=== PATIENT | male | born 1970 | race Caucasian/White ===

== ENCOUNTER → 2016-04-28 | Outpatient (CLI) | payer OTHER ==
[~2016-04-28] MED LIST: AMOXICILLIN 50500 MG PO; CEPHALEXIN500 M1 PO; LEVAQUIN 5500 MG/TA1 PO; PRILOSEC 20MG20 MG PO
[2016-04-28 15:23] LABS: BASO % 0.9 % (0.0-2.0); EOS # 0.1 (0.0-0.7); EOS % 2.3 % (0-4.0); GRAN # 2.4 (1.4-6.5); GRAN % 55.7 % (42.2-75.2); HEMATOCRIT 46.9 % (42.0-52.0); HEMOGLOBIN 16.3 g/dl (13.5-18.0); LYMPH # 1.4 (1.2-3.4); LYMPH % 31.6 % (20.0-51.0); MEAN CELL VOLUME 87 fl (80.0-100.0); MEAN CORPUSCULAR HEMOGLOBIN 30 pg (27.0-31.0); MEAN CORPUSCULAR HGB CONC 35 g/dl (33.0-37.0); MEAN PLATELET VOLUME 10.4 fl (7.4-10.4); MONO # 0.4 (0.1-0.6); MONO % 9.3 % (1.7-9.3); PLATELET COUNT 187 K/mm3 (130-400); RED BLOOD COUNT 5.37 M/mm3 (4.20-5.60); REDCELL DISTRIBUTION WIDTH-CV 12.7 % (11.5-14.5); WHITE BLOOD COUNT 4.3 K/mm3 (4.8-10.8)
[2016-04-28 16:02] LABS: ALBUMIN 4.9 gm/dL (3.5-5.0); BILIRUBIN,TOTAL 2.2 mg/dL (0.0-1.0); TOTAL PROTEIN 8.2 gm/dL (6.4-8.2)
[2016-04-28 16:30] LABS: BILIRUBIN,DIRECT 0.4 mg/dL (0.0-0.4)
[2016-04-29 23:48] LABS: HEPATITIS A ANTIBODY-IGM Negative (())
== END ==
LOC: COL.LAB 14:47 → COL.RAD 04-30 07:30
PROVIDERS: Registered Nurse
DX: K29.60 Other gastritis without bleeding (principal); E80.6 Other disorders of bilirubin metabolism; D72.89 Other specified disorders of white blood cells

== ENCOUNTER → 2016-04-30 | Outpatient (CLI) | payer OTHER | LOC: COL.RAD 06:28 | DX: D72.89 Other specified disorders of white blood cells (principal); E80.6 Other disorders of bilirubin metabolism; R10.84 Generalized abdominal pain ==

== ENCOUNTER 2016-09-30 10:03 | Emergency (ER) | payer OTHER ==
[~2016-09-30] VITALS: Ht 124.5 cm; Wt 57.7 kg
[~2016-09-30 10:03] MED LIST changes: -CEPHALEXIN500 M1 PO
[2016-09-30 10:58] LABS: BASO # 0.1 (0.0-0.2); BASO % 1.1 % (0.0-2.0); EOS # 0.2 (0.0-0.7); EOS % 3.3 % (0-4.0); GRAN # 2.4 (1.4-6.5); GRAN % 53.4 % (42.2-75.2); HEMATOCRIT 44.4 % (42.0-52.0); HEMOGLOBIN 15.7 g/dl (13.5-18.0); LYMPH # 1.4 (1.2-3.4); LYMPH % 30.7 % (20.0-51.0); MEAN CELL VOLUME 87 fl (80.0-100.0); MEAN CORPUSCULAR HEMOGLOBIN 31 pg (27.0-31.0); MEAN CORPUSCULAR HGB CONC 35 g/dl (33.0-37.0); MEAN PLATELET VOLUME 10.6 fl (7.4-10.4); MONO # 0.5 (0.1-0.6); MONO % 11.1 % (1.7-9.3); PLATELET COUNT 179 K/mm3 (130-400); REDCELL DISTRIBUTION WIDTH-CV 12.6 % (11.5-14.5); WHITE BLOOD COUNT 4.5 K/mm3 (4.8-10.8)
[2016-09-30 11:00] LABS: ADJUSTED CALCIUM 8.9 mg/dL (8.4-10.2); ALANINE AMINOTRANSFERASE 52 U/L (21-72); ALBUMIN 4.5 gm/dL (3.5-5.0); ALKALINE PHOSPHATASE 79 U/L (50-136); ANION GAP 10 mmol/L (7-16); BILIRUBIN,TOTAL 2.1 mg/dL (0.0-1.0); BLOOD UREA NITROGEN 14 mg/dL (9-20); CALCIUM 9.3 mg/dL (8.4-10.2); CARBON DIOXIDE 25 mmol/L (22-30); CHLORIDE 101 mmol/L (98-107); CREATININE, serum 0.94 mg/dL (0.66-1.25); GLUCOSE 108 mg/dL (74-106); POTASSIUM 4.1 mmol/L (3.4-5.0); SODIUM 137 mmol/L (137-145); TOTAL PROTEIN 7.5 gm/dL (6.4-8.2)
[2016-09-30 11:02] LABS: C-REACTIVE PROTEIN < 0.5 mg/dL (0.0-0.9)
[2016-09-30 11:13] LABS: TROPONIN-I < 0.012 ng/mL (0.000-0.034)
[2016-09-30] MEDS ORDERED: CEPHALEXIN500 M1 PO (11:34)
[2016-09-30 11:50] VITALS: BP 132/87; PULSE 59
== END 2016-09-30 11:55 | disposition home or self-care (01) ==
LOC: COL.ER 10:03
PROVIDERS: Emergency Medicine
DX: L03.115 Cellulitis of right lower limb (principal); R07.1 Chest pain on breathing

== ENCOUNTER → 2017-12-30 | Outpatient (CLI) | payer SELFPAY ==
[~2017-12-30] MED LIST changes: +CEPHALEXIN500 M1 PO
== END ==
LOC: COL.RAD 08:41
DX: N50.812 Left testicular pain (principal)

== ENCOUNTER 2019-05-01 12:09 | Emergency (ER) | payer SELFPAY ==
[~2019-05-01] VITALS: Ht 276.9 cm; Wt 59.1 kg
[2019-05-01 12:16] VITALS: TEMP 98
[2019-05-01 13:01] LABS: INR 0.9 (0.8-3.0)
[2019-05-01 13:02] LABS: BASO % 0.6 % (0.0-2.0); EOS # 0.1 (0.0-0.7); GRAN # 1.8 (1.4-6.5); GRAN % 50.9 % (42.2-75.2); HEMATOCRIT 43.1 % (42.0-52.0); HEMOGLOBIN 15.3 g/dl (13.5-18.0); LYMPH # 1.2 (1.2-3.4); LYMPH % 33.7 % (20.0-51.0); MEAN CELL VOLUME 87 fl (80.0-100.0); MEAN CORPUSCULAR HEMOGLOBIN 31 pg (27.0-31.0); MEAN CORPUSCULAR HGB CONC 36 g/dl (33.0-37.0); MEAN PLATELET VOLUME 10.3 fl (7.4-10.4); MONO # 0.4 (0.1-0.6); MONO % 12.5 % (1.7-9.3); PLATELET COUNT 181 K/mm3 (130-400); RED BLOOD COUNT 4.95 M/mm3 (4.20-5.60); REDCELL DISTRIBUTION WIDTH-CV 12.4 % (11.5-14.5)
[2019-05-01 13:04] LABS: PARTIAL THROMBOPLASTIN TIME 25.2 SECONDS (26.0-37.0)
[2019-05-01 13:08] LABS: ALANINE AMINOTRANSFERASE 68 U/L (21-72); ALBUMIN 4.5 gm/dL (3.5-5.0); ALKALINE PHOSPHATASE 89 U/L (50-136); ANION GAP 9 mmol/L (7-16); AST,SGOT 45 U/L (15-37); BILIRUBIN,TOTAL 1.1 mg/dL (0.0-1.0); BLOOD UREA NITROGEN 19 mg/dL (9-20); CALCIUM 9.3 mg/dL (8.4-10.2); CARBON DIOXIDE 26 mmol/L (22-30); CHLORIDE 105 mmol/L (98-107); CREATININE, serum 0.85 (0.66-1.25); GLUCOSE 98 mg/dL (74-106); POTASSIUM 4.1 mmol/L (3.4-5.0); SODIUM 140 mmol/L (137-145); TOTAL PROTEIN 7.6 gm/dL (6.4-8.2)
[2019-05-01 13:24] LABS: TROPONIN-I < 0.012 ng/mL (0.000-0.035)
[2019-05-01] MEDS ORDERED: ZITHROMAX Z PA250 MG PO (13:42)
[2019-05-01 13:58] VITALS: BP 124/81; PULSE 65
== END 2019-05-01 13:59 | disposition home or self-care (01) ==
LOC: COL.ER 12:09
PROVIDERS: Family Medicine
DX: J18.9 Pneumonia, unspecified organism (principal); K21.9 Gastro-esophageal reflux disease without esophagitis
CPT/HCPCS: J0696; J1885

== ENCOUNTER → 2020-09-10 | Outpatient (CLI) | payer SELFPAY ==
[~2020-09-10] MED LIST changes: +CHERATUSSIN AC120 ML PO; +TYLENOL 500MG500 MG PO; +ZITHROMAX Z PA250 MG PO
== END ==
LOC: COL.RAD 15:48
DX: M25.422 Effusion, left elbow (principal); M25.522 Pain in left elbow

== ENCOUNTER → 2023-07-19 | Outpatient (CLI) | payer SELFPAY ==
[~2023-07-19] MED LIST changes: +NORCO 325 MG-51 TAB PO
== END ==
LOC: COL.RAD 09:33
DX: R91.1 Solitary pulmonary nodule (principal)